=== PATIENT | female | born 1985 | race Caucasian/White ===

== ENCOUNTER 2020-09-17 08:56 | Emergency (ER) | payer BC ==
[2020-09-17] MEDS ORDERED: Sulfamethoxazole/Trimethoprim 800-160 MG Tab ONE (09:00)
--- NOTE | 2020-09-17 11:07 | ER ---
REASON FOR EMERGENCY ROOM VISIT: Anal pain, possibly abscess. 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 The following day, she noticed a lump in her perianal area while she was showering. This mass enlarged and became increasingly painful yesterday, overnight, and early this morning she woke and noticed that she had some small amount of blood with some pus in her undergarment and noticed that the pain had abruptly almost completely subsided, it is still nonetheless somewhat tender, and she has some residual swelling. She has not had any fever or chills. She denies any diarrhea. Her past medical history is significant, in that she has had what has been termed a nonrelaxing pelvic floor disorder which developed subsequent to her having had a benign pelvic tumor removed in 2009 (schwannoma). Additionally, she has had an anal fissure in the past as a result of this predisposing condition. She has no history of intermittent diarrhea or nothing to suggest inflammatory bowel disease. MEDICATIONS: Reviewed. See EMR. ALLERGIES: NONE TO MEDICATIONS. REVIEW OF SYSTEMS: Pertinent positives and negatives as listed in the HPI. PHYSICAL EXAMINATION: Examination of her perineum reveals that she has an indurated tender erythematous lump located anterolaterally along the mucocutaneous junction of the anus. It has some purulence, it is easily expressible from this area. The surrounding erythema is minimum perhaps less than 1 cm diameter. IMPRESSION: Perianal abscess, drained spontaneously. PLAN: I did discuss the option of enlarging the drainage surgically over the abscess under local anesthesia, but indicated to her that I do not think this is necessary at this point in time. It appears that the spontaneous drainage with the marked reduction in pain has already done that for us. The alternative of sitz baths and short course of antibiotics until things simmer down was discussed with her and she felt that was the more acceptable alternative under the circumstances. She was instructed regarding sitz baths to be done 3 or 4 times a day using bacteriocidal soap and water. Continue use of gauze in the area to keep from soiling her undergarments, etc. I gave her Bactrim DS 1 p.o. b.i.d., dispensed #6. We did discuss things like stool softeners and high-fiber diets to counteract the effects of her underlying pelvic floor disorder. All questions were answered. She understands and agrees with this plan. MOR/WOODROW /[id number]
== END 2020-09-17 09:40 | disposition home or self-care (01) ==
LOC: LB.ED 08:56
DX: K61.0 Anal abscess (principal)
CPT/HCPCS: 99282; A9270